=== PATIENT | female | born 1950 | race Asian ===

== ENCOUNTER 2019-02-25 00:30 | Observation (INO) | payer BC ==
[~2019-02-25] VITALS: Ht 165.1 cm; Wt 70.0 kg
--- NOTE | 2019-02-25 00:42 | ERD ---
ER Documentation Chief Complaint Chief Complaint silvia ra from [facility] for palpitations HPI The patient is a 68-year-old female, presenting to the ER because of palpitation. She recently had a stroke with left hemiplegia, [facility] to [facility] facility [facility]. She did have colonoscopy and EGD that did not show any significant finding. She denies syncope, near syncope, chest pain, abdominal pain, vomiting, dysuria, diarrhea, hematemesis, hematochezia. She does not smoke nor drink Past medical history: History of CVA with left hemiplegia, hypertension ROS All systems reviewed and are negative except as per history of present illness. Medications Home Meds Active Scripts Ferrous Sulfate* (Ferrous Sulfate*) 325 Mg Tabec, 325 MG PO TID for 30 Days, TAB Prov:ANNY FLORES MD 02/25/19 Allergies Allergies: Coded Allergies: No Known Allergy (Unverified , 02/25/19) Physical Exam Vitals Vital Signs Date Temp Pulse Resp B/P (MAP) Pulse Ox O2 O2 Flow FiO2 Time Delivery Rate 02/25/19 123 23 146/90 97 20:00 (108) 02/25/19 98.8 125 25 155/81 97 Room Air 2.0 19:37 (105) 02/25/19 98.5 115 22 141/78 97 Room Air 14:37 (99) 02/25/19 98.7 105 20 147/100 98 Room Air 10:09 (116) 02/25/19 98.5 108 22 154/86 100 Nasal 2.0 07:00 (108) Cannula 02/25/19 112 22 157/82 100 Nasal 2.0 05:03 (107) Cannula 02/25/19 105 24 157/82 97 Room Air 2.0 03:30 (107) Nasal Cannula 02/25/19 98 2.0 02:13 02/25/19 Nasal 2 02:09 Cannula 02/25/19 98.1 99 19 145/72 100 Room Air 01:02 (96) 02/25/19 98.1 71 19 145/72 100 00:34 (96) Physical Exam Const: No acute distress. Head: Atraumatic. Eyes: Normal Conjunctiva. ENT: Normal External Ears, Nose and Mouth. Neck: Full range of motion. No meningismus. Resp: Clear to auscultation bilaterally. Cardio: Regular rate and rhythm. Abd: Soft, non distended, normal bowel sounds, non tender. Skin: No petechiae or rashes. Back: No midline or flank tenderness. Ext: No cyanosis, or edema. Neur: Awake and alert. left hemiplegia Psych: Normal Mood and Affect. Result Diagram: 02/26/19 0620 02/25/19 0116 Results 24 hrs Laboratory Tests Test 02/25/19 01:16 02/25/19 05:38 White Blood Count 6.0 10^3/ul Red Blood Count 2.17 10^6/ul Hemoglobin 6.8 g/dl Hematocrit 20.9 % Mean Corpuscular Volume 96.3 fl Mean Corpuscular Hemoglobin 31.3 pg Mean Corpuscular Hemoglobin Concent 32.5 g/dl Red Cell Distribution Width 16.1 % Platelet Count 216 10^3/UL Mean Platelet Volume 11.4 fl Immature Granulocytes % 0.300 % Neutrophils % % Segmented Neutrophils % (Manual) 67 % Lymphocytes % % Lymphocytes % (Manual) 22 % Monocytes % % Monocytes % (Manual) 9 % Eosinophils % % Eosinophils % (Manual) 1 % Basophils % % Metamyelocytes % (manual) 1 % Nucleated Red Blood Cells % 0.0 /100WBC Immature Granulocytes # 0.020 10^3/ul Neutrophils # 10^3/ul Lymphocytes (Manual) 1.3 10^3/ul Lymphocytes # 10^3/ul Monocytes # 10^3/ul Monocytes # (Manual) 0.5 10^3/ul Eosinophils # 10^3/ul Basophils # 10^3/ul Metamyelocytes # 0.0 10^3/ul Nucleated Red Blood Cells # 10^3/ul Platelet Estimate NORMAL Polychromasia 3+ Anisocytosis 1+ Macrocytosis 1+ Prothrombin Time 12.5 Sec Prothrombin Time Ratio 1.0 INR International Normalized Ratio 0.92 Activated Partial Thromboplast Time 39.6 Sec Sodium Level 142 mmol/L Potassium Level 3.4 mmol/L Chloride Level 113 mmol/L Carbon Dioxide Level 23 mmol/L Anion Gap 6 Blood Urea Nitrogen 11 mg/dl Creatinine 0.82 mg/dl Est Glomerular Filtrat Rate mL/min > 60 mL/min Glucose Level 92 mg/dl Calcium Level 8.1 mg/dl Troponin I 0.070 ng/ml B-Type Natriuretic Peptide 1350 PG/ML Iron Level 25 ug/dl Total Iron Binding Capacity 264 ug/dl Percent Iron Saturation 9 % SAT Current Medications Medications Dose Sig/Bandar Start Time Status Last (Trade) Ordered Route PRN Stop Time Admin Dose Reason Admin Potassium 20 meq ONCE ONCE 02/25/19 DC 02/25/19 Chloride PO 02:36 03:16 (Klor-Con 20) 02/25/19 02:37 Sodium 1,000 ml @ Q1H STAT 02/25/19 DC 02/25/19 Chloride 1,000 mls/hr IV 17:14 18:42 02/25/19 18:13 Lorazepam 1 mg ONCE ONCE 02/25/19 DC 02/25/19 (Ativan) IV 18:30 18:42 02/25/19 18:31 Ondansetron 4 mg ER BRIDGE 02/25/19 HCl (Zofran PRN IV 19:00 Inj) NAUSEA/VOMITI 02/26/19 18:59 NG 650 mg ER BRIDGE 02/25/19 Acetaminophen PRN PO 19:00 (Tylenol .MILD PAIN 02/26/19 18:59 Tab) 1-3 OR TEMP 1,000 ml @ [id number] IV 02/25/19 02/26/19 Dextrose/Sodi 70 mls/hr 19:52 08:40 um Chloride IV Flush 3 ml PER 02/25/19 (NS 3 ml) PROTOCOL IV 20:00 Ondansetron 4 mg Q6H PRN 02/25/19 HCl (Zofran IV 20:00 Inj) NAUSEA/VOMITI NG Procedures/[place] [id number] Radiology Main Line: [phone] DIAGNOSTIC IMAGING REPORT Patient: EMORY GAMEZ : 1950 Age: 68 Sex: F MR #: [id number] DOS: 02/25/19 004 Ordering MD: JAMES PEREZ MD Location: E/R Room/Bed: PROCEDURE: Portable chest x-ray. CLINICAL INDICATION: 68 years of age, female. Shortness of breath TECHNIQUE: Portable AP view of the chest. COMPARISON: None available. FINDINGS: Medical devices: None. Mediastinum: Borderline heart size. Mediastinal contours are otherwise normal. Lungs: Lungs are clear. Pleura: Negative for pleural effusion or pneumothorax. Bones: No acute bony abnormality. Additional comment: None. IMPRESSION: Negative for evidence of an acute chest process. RPTAT: HCTS Physician Parminder Date Time Electronically viewed and signed by Kassie Wyatt Physician on 02/25/2019 02:36 CS/ CC: JAMES PEREZ MD [id number] EKG: Read by emergency physician Rate/Rhythm: Normal Sinus Rhythm 97 beats/min QRS, ST, T-waves: No ST elevation, no T inversion, PAC, LVH Impression: Abnormal EKG MEDICAL MAKING DECISION: The patient is a 68-year-old female, presenting with acute symptomatic anemia, I have ordered to transfuse her 2 units of packed red blood cell, potassium chloride 20 mg p.o. for acute hypokalemia The differential diagnoses considered include but are not limited to gastritis, peptic ulcer disease, esophageal varices, Jina-Duarte tear, carcinoma, polyp, hemorrhoid, fissure, diverticulosis, angiodysplasia. Departure Diagnosis: Primary Impression: Symptomatic anemia Additional Impression: Hypokalemia Condition: Stable Comments I discussed the findings with the patient. I discussed the patient with Dr Flores at 4:30p , who was made aware of the lab, the treatment, the patient condition. The patient is admitted to [facility] Disclaimer: Inadvertent spelling and grammatical errors are likely due to EHR/dictation software use and do not reflect on the overall quality of patient care. Also, please note that the electronic time recorded on this note does not necessarily reflect the actual time of the patient encounter. JAMES PEREZ MD Feb 25, 2019 00:42
[2019-02-25] MEDS ORDERED: POTASSIUM CHLORIDE (SR) 20 MEQ TAB PO ONE (02:36)
[2019-02-25] MEDS ORDERED: FER325 PO (10:55)
--- NOTE | 2019-02-25 11:30 | CONS ---
DATE OF ADMISSION: 02/25/2019 DATE OF CONSULTATION: 02/25/2019 CHIEF COMPLAINT: Palpitations. HISTORY OF PRESENT ILLNESS: A 68-year-old female with recent history of acute cerebrovascular accide nt and left hemiparesis, was transferred from [facility] with complaint of palpitations. The patient denied any chest pain. No shortness of breath. No hematemesis. No b right red blood per rectum or melena. No abdominal pain. Initial evaluation revealed hemoglobin of 6.8 with MCV of 96.3. Serum iron was 25, and iron saturation was 9%. The patient was planned for pa cked RBC for admission and packed RBC transfusion. However, she refused to be transfused. I had a l shanta discussion with her and reassured her that blood products are checked carefully, but she continue s to refuse. The patient was recently at [facility] and underwent endoscopic evaluation. No source of bleeding was identified according to her. Case was discussed with professor of lat[employer] americ[employer] studies, Dr. Govea. W e will not be able to subject to any procedure with such a low hemoglobin. PAST MEDICAL HISTORY: 1. Acute cerebrovascular accident. 2. Iron deficiency anemia. 3. Gastrointestinal bleed. MEDICATIONS PRIOR TO ADMISSION: The list of medications prior to admission is not available. PHYSICAL EXAMINATION: GENERAL: Well-developed, well-nourished female who is in no apparent distress. VITAL SIGNS: Stable. She is afebrile. Heart rate is 105. HEENT: Extraocular muscles intact. Pupils equal and reactive to light bilaterally. Sclerae are ani cteric. Oropharynx is clear and moist. NECK: Supple, no JVD, no carotid bruits. LUNGS: Clear to auscultation bilaterally. CARDIAC: Regular rate and rhythm. No murmurs or gallops. ABDOMEN: Soft, nontender, nondistended, normoactive bowel sounds. EXTREMITIES: No clubbing, cyanosis, or edema. NEUROLOGICAL: The patient had left-sided weakness, especially involving the left upper extremity. L eft lower extremity with 3/5 strength. Right-sided normal strength. LABORATORY DATA: Hemoglobin 6.8, white blood cell count 6, platelet count is 216,000. ASSESSMENT: 1. A 68-year-old female with tachycardia, most likely due to underlying anemia. 2. Iron deficiency anemia. 3. Status post recent endoscopy evaluation with no identified source of bleeding. The patient is re fusing packed RBC transfusion or any further procedures. She [facility] a different prison [facility] acility. PLAN: 1. Transfer to prison facility. 2. Start oral iron supplements. 3. Follow up with PCP. Dictated By: ANNY WOODWARD/NTS Conf#: [id number] DID#: [id number] CC: JAMES PEREZ MD;*EndCC*
[2019-02-25] MEDS ORDERED: SOD CHLORIDE 0.9% 1,000 ML IV STA (17:14)
[2019-02-25] MEDS ORDERED: LORAZEPAM 2 MG INJ IV ONE (18:30)
[2019-02-25] MEDS ORDERED: ACETAMINOPHEN 325 MG TAB PO PRN (19:00)
[2019-02-25] MEDS ORDERED: ONDANSETRON 4 MG INJ IV PRN ×2 (19:00→20:00)
[2019-02-25] MEDS ORDERED: NACL 0.9% 3 ML SYG IV SCH (20:00)
[2019-02-25 21:49] VITALS: PULSE 110
--- NOTE | 2019-02-25 21:49 | QN ---
Documentation Comment The patient was boarding in the emergency room pending [facility] however the patient refused transportation. The patient was noted to be anemic with tachycardia however Dr. rTan had discharged the patient. Justification was that the patient was refusing blood transfusion. After prolonged conversations with the patient including family members the patient has finally agreed to blood transfusion and will be admitted by Dr. Florin renae I discussed with the patient and/or family the risks, benefits, alternatives of blood transfusion. This includes allergic reaction and infections including HIV and hepatitis. The patient and/or family were able to verbalize these risks, stated understanding. A document has been signed and placed in the chart. Patient was also given IV fluids and anxiolysis. Patient was admitted SHANIKA GONZALEZ MD Feb 25, 2019 21:49
[2019-02-25 22:00] VITALS: BP 200/84; PULSE 107; RESP 20; Ht 165.1 cm; Wt 70.0 kg
[2019-02-25] MEDS: DEXTROSE 5%-0.45% NACL 1,000 ML IV SCH (22:22)
[2019-02-25] MEDS ORDERED: LABETALOL HCL 20MG INJ IV PRN (23:30)
[2019-02-26] VITALS (9 sets, daily range): BP systolic 126–160; BP diastolic 6–74; PULSE 89–125; RESP 18–20
[2019-02-26] MEDS: DEXTROSE 5%-0.45% NACL 1,000 ML IV SCH ×2 (00:24→08:40)
--- NOTE | 2019-02-26 10:53 | HP ---
DATE OF ADMISSION: 02/25/2019 CHIEF COMPLAINT: Palpitations. HISTORY OF PRESENT ILLNESS: A 68-year-old female with distant history of an acute CVA and left hemip aresis, was transferred from [facility] with complaint of palpitations. The patient had a recent history of GI bleed. She underwent EGD and colonoscopy at [facility] several days prior to admission. No source of bleeding was identified. Initial evaluation in [facility] facility revealed hemoglobin of 6.8. The patient initially refused transfusion and requested to b e taken back to the [facility] emergency facility. She remained tachycardic in the emergency room. After several conversations with the patient and family members, she agreed to packed RBC transfusion. PAST MEDICAL HISTORY: 1. Recent cerebrovascular accident with left hemiparesis. 2. Iron deficiency anemia. 3. Gastrointestinal bleed. MEDICATIONS PRIOR TO ADMISSION: The list of medications was not available at the time of admission. PHYSICAL EXAMINATION: GENERAL: Well-developed, well-nourished female who is in no apparent distress. VITAL SIGNS: Heart rate is 110, blood pressure is stable. She is afebrile. HEENT: Extraocular muscles are intact. Pupils are equal and reactive to light bilaterally. Sclerae are anicteric. Oropharynx is clear. NECK: Supple, no JVD, no carotid bruits. LUNGS: Clear to auscultation bilaterally. CARDIAC: Rapid rate. No murmurs or gallops. ABDOMEN: Soft, nontender, nondistended, normoactive bowel sounds. EXTREMITIES: No clubbing, cyanosis, or edema. NEUROLOGICAL: Left-sided weakness, especially involving the left arm. Left leg with 3/5 strength. ASSESSMENT: 1. A 68-year-old female with iron deficiency anemia due to gastrointestinal bleed. 2. Palpitations secondary to anemia. 3. History of recent cerebrovascular accident with left hemiparesis. 4. Hypertension. PLAN: 1. Place in tele observation. 2. Transfuse 2 units of packed RBC. 3. GI consultation was requested. 4. Monitor hemoglobin. Dictated By: ANNY FLORES MD SK/NTS Conf#: [id number] DID#: [id number] CC: ANNY FLORES MD;*EndCC*
--- NOTE | 2019-02-26 11:10 | DS ---
DATE OF ADMISSION: 02/25/2019 DATE OF DISCHARGE: 02/26/2019 DISCHARGE DIAGNOSES: 1. A 68-year-old female with iron deficiency anemia. 2. History of GI bleed with normal EGD and colonoscopy. 3. History of recent accident with left hemiparesis. 3. Hypertension. HOSPITAL COURSE: A 68-year-old female with distant history of CVA and left hemiparesis, presented to emergency room with complaint of palpitations. The patient was noted to have hemoglobin of 6.8. Terrence maradiaga was recently admitted to [facility] where she underwent several gastrointestinal workups. EGD and colonoscopy were unremarkable. The source of GI bleed was not identified. The patient init ially refused packed RBC transfusion. However, after discussions with patient and family members, terrence maradiaga agreed to transfusion. The patient received 1 unit of packed RBC. Repeat hemoglobin was 9.7. The re was no hematemesis, blood per rectum, or melena during the hospitalization. GI consultation was r equested. The patient will undergo RBC tagged bleeding scan prior to discharge. She will go back to prison facility for physical [facility] and rehabilitation. Dictated By: ANNY FLORES MD SK/NTS Conf#: [id number] DID#: [id number] CC: ANNY FLORES MD;*EndCC*
[2019-02-27] VITALS: BP 128/75; PULSE 105; PULSE 111; RESP 18
[2019-02-27] MEDS: DEXTROSE 5%-0.45% NACL 1,000 ML IV SCH ×2 (00:28→08:27)
[2019-02-27 04:00] VITALS: BP 143/71; PULSE 87; PULSE 91; RESP 18
[2019-02-27 07:40] VITALS: BP 169/86; PULSE 96; RESP 20
[2019-02-27 08:24] VITALS: PULSE 93
[2019-02-27 12:10] VITALS: PULSE 110
[2019-02-27 14:25] VITALS: BP 116/72; PULSE 111; RESP 18
== END 2019-02-27 14:50 ==
LOC: E/R 00:30 → CANBEDREQ 13:54 → TEL 20:05
PROVIDERS: ADMIT Internal Medicine; ATTEND Internal Medicine
DX: D50.0 Iron deficiency anemia secondary to blood loss (chronic) (principal); K92.2 Gastrointestinal hemorrhage, unspecified; E87.6 Hypokalemia; I10 Essential (primary) hypertension; I69.354 Hemiplegia and hemiparesis following cerebral infarction affecting left non-dominant side; R06.02 Shortness of breath
CPT/HCPCS: 36415; 36430; 71045; 78278; 80048; 83540; 83880; 84484; 85018; 85025; 85610; 85730; 86850; 86900; 86901; 86920; 87081; 93005; 96374; 99285; A9560; G0378; J2060; J7030; J7042; P9016